=== PATIENT | female | born 1935 | race Caucasian/White ===

== ENCOUNTER 2018-02-03 17:06 | Emergency (ER) | payer MEDICARE, OTHER ==
[~2018-02-03] VITALS: Ht 162.6 cm; Wt 54.4 kg
--- NOTE | 2018-02-03 17:25 | NUR ---
called [facility] and talked to tito, per tito, kumar a base line is forgetfull, but oriented to time and place, but whenever she gets hypoglycemic, becomes confused.
[2018-02-03] MEDS ORDERED: TICA90TA PO (17:29)
[2018-02-03] MEDS ORDERED: MIRT15TA7 PO (17:29)
[2018-02-03] MEDS ORDERED: BUPR300T54 PO (17:29)
[2018-02-03] MEDS ORDERED: DOCU100C36 PO (17:29)
[2018-02-03] MEDS ORDERED: MULT1TAB64 PO (17:29)
[2018-02-03] MEDS ORDERED: ROSU20TA PO (17:29)
[2018-02-03] MEDS ORDERED: ASCO500T10 PO (17:29)
[2018-02-03] MEDS ORDERED: LEVO100T10 PO (17:29)
[2018-02-03] MEDS ORDERED: OLOP2.5D EACHEYE (17:29)
[2018-02-03] MEDS ORDERED: INSU100I24 SQ (17:29)
[2018-02-03] MEDS ORDERED: ASPI-605 PO (17:29)
[2018-02-03] MEDS ORDERED: INSU100I4 SQ (17:29)
[2018-02-03] MEDS ORDERED: MEMA10TA PO (17:29)
[2018-02-03] MEDS ORDERED: CHOL20004 PO (17:29)
[2018-02-03] MEDS ORDERED: METO-356 PO (17:29)
[2018-02-03] MEDS ORDERED: BIOT10006 PO (17:29)
--- NOTE | 2018-02-03 17:55 | NUR ---
hospital diabetic/cardiac tray provided. assissted pt to eat dinner.
[2018-02-03 17:56] LABS: BASOPHILS # (AUTO) 0.1 K/uL (0.0-8.0); BASOPHILS % (AUTO) 0.6 % (0.0-2.0); EOSINOPHILS # (AUTO) 0.2 K/uL (0.0-0.7); EOSINOPHILS % (AUTO) 2.2 % (0.0-7.0); HEMATOCRIT 32.7 % (31.2-41.9); HEMOGLOBIN 10.9 g/dL (10.9-14.3); LYMPHOCYTES # (AUTO) 0.8 K/uL (20.0-40.0); LYMPHOCYTES % (AUTO) 8.3 % (20.5-51.5); MEAN CORPUSCULAR HEMOGLOBIN 30.2 uug (24.7-32.8); MEAN CORPUSCULAR HGB CONC 33 g/dL (32.3-35.6); MEAN CORPUSCULAR VOLUME 90.1 fL (75.5-95.3); MONOCYTES # (AUTO) 0.6 K/uL (2.0-10.0); MONOCYTES % (AUTO) 5.9 % (0.0-11.0); PLATELET COUNT (AUTO) 225 K/uL (179-408); RED BLOOD CELL COUNT(AUTO) 3.62 MIL/uL (3.63-4.92); WHITE BLOOD COUNT (AUTO) 9.6 K/uL (3.8-11.8)
[2018-02-03 17:59] LABS: CARBON DIOXIDE 27 mmol/L (21-32); CHLORIDE 105 mmol/L (98-107); CREATININE 1.2 mg/dL (0.6-1.3); GLUCOSE 200 mg/dL (74-106); POTASSIUM 3.5 mmol/L (3.5-5.1); UREA NITROGEN, BLOOD 22 mg/dL (7-18)
--- NOTE | 2018-02-03 18:30 | NUR ---
pt able to walk around with steady gait with assisstance. pt daughter at [facility].
--- NOTE | 2018-02-03 18:49 | NUR ---
called [facility] to let them know the pt is coming home.
--- NOTE | 2018-02-03 18:54 | NUR ---
Patient discharged to home in stable conditon. Written and verbal after care instructions given. Patient daughter verbalizes understanding of instructions.pt daughter took pt back home. pt says feels better and is ready to go home. Addendum: 02/03/18 at 1857 by SHANIA pt more alert at this time, answering the questions and appreciative of the care she recieved here.
[2018-02-03 18:58] VITALS: BP 141/61
== END 2018-02-03 18:58 | disposition home or self-care (01) ==
LOC: ER 17:08
DX: E16.2 Hypoglycemia, unspecified (principal); Z88.0 Allergy status to penicillin; Z88.2 Allergy status to sulfonamides; Z88.8 Allergy status to other drugs, medicaments and biological substances
CPT/HCPCS: 36415; 80048; 85025; 93005; 99285; A4663